=== PATIENT | female | born 1970 | race Caucasian/White ===

== ENCOUNTER 2018-04-12 13:27 | Outpatient (CLI) | payer OTHER ==
--- NOTE | 2018-04-14 09:00 | MMO ---
MAMMOGRAM FINDINGS: The breasts are heterogeneously dense, which could obscure a lesion on mammography. There is a round mass measuring 7 millimeters with circumscribed margins seen in the right breast at 12 o'clock. IMPRESSION: MASS IN THE RIGHT BREAST REQUIRES ADDITIONAL EVALUATION. AN ULTRASOUND SHOULD BE PERFORMED FOR FURTHER EVALUATION. ACR BI-RADS Category 0 - Incomplete: Need additional imaging evaluation. [facility] will notify the patient of the need for additional imaging services.
== END 2018-04-12 13:28 | disposition home or self-care (01) ==
LOC: BICMAMMO 13:27
PROVIDERS: ATTEND Family Medicine
DX: Z12.31 Encounter for screening mammogram for malignant neoplasm of breast (principal)
CPT/HCPCS: 77063; 77067

== ENCOUNTER 2018-05-02 14:14 | Outpatient (CLI) | payer OTHER ==
--- NOTE | 2018-05-02 15:30 | ULT ---
RIGHT BREAST ULTRASOUND: HISTORY: Well circumscribed mass seen at the 12 o'clock position of the right breast on screening mammography with tomosynthesis. COMPARISON: Mammogram from 04/12/2018. TECHNIQUE: Multiplanar dumas-scale and color Doppler images were obtained in a targeted ultrasound of the right b reast. FINDINGS: At the 12 o'clock position of the right breast, approximately 7 cm from the nipple, there is a well c ircumscribed, hypoechoic mass, which appears solid. This does not demonstrate shadowing. This may h ave a hyperechoic center and could represent an intramammary lymph node. No suspicious shadowing or mass is seen. IMPRESSION: BI-RADS category 3-Probably benign finding. A six-month follow-up right breast ultrasound is recomme nded to ensure stability. POS: ZEESHAN
== END 2018-05-02 14:15 | disposition home or self-care (01) ==
LOC: BICMAMMO 14:14
PROVIDERS: ATTEND Family Medicine
DX: N63.11 Unspecified lump in the right breast, upper outer quadrant (principal)

== ENCOUNTER 2018-11-02 13:11 | Outpatient (CLI) | payer OTHER ==
--- NOTE | 2018-11-02 13:36 | ULT ---
LIMITED RIGHT BREAST ULTRASOUND: Date: 11/02/18 PROVIDED CLINICAL HISTORY: Follow-up right breast mass. FINDINGS: Limited sonographic interrogation was performed of the right breast at the 12 o'clock position. There is a circumscribed hypoechoic mass with questionable fatty hilum again demonstrated at the 12 o'cloc k position of the right breast. This measures about 7 mm maximally. No acoustic shadowing is evident. IMPRESSION: BI-RADS Category 3 - Probably benign findings. Follow-up bilateral diagnostic mammogram in 6 months i s recommended. Ultrasound may be useful at that time. The facility will notify patient of need for additional imaging services. POS: OFF
== END 2018-11-02 13:12 | disposition home or self-care (01) ==
LOC: BICULT 13:11
PROVIDERS: ATTEND Family Medicine
DX: N63.10 Unspecified lump in the right breast, unspecified quadrant (principal)

== ENCOUNTER 2019-04-14 13:34 | Outpatient (CLI) | payer OTHER ==
--- NOTE | 2019-04-14 14:27 | MMO ---
Bilateral MAMMO Bilat Diag [facility]. CLINICAL HISTORY: Patient is 48 years old and is seen for diagnostic exam. The patient has no family history of breast cancer. The patient has no personal history of cancer. VIEWS: The views performed were: bilateral craniocaudal with tomosynthesis; bilateral mediolateral oblique with tomosynthesis; and bilateral mediolateral with tomosynthesis. FILMS COMPARED: The present examination has been compared to prior imaging studies performed at [facility] on 04/12/2018, 05/02/2018, 11/02/2018 and 04/14/2019. This study has been interpreted with the assistance of computer-aided detection. MAMMOGRAM FINDINGS: The breasts are heterogeneously dense, which could obscure a lesion on mammography. Finding 1: There are stable benign appearing calcifications seen in both breasts. Finding 2: There is a stable intramammary lymph node measuring 7 millimeters seen in the right breast at 12 o'clock. There are no suspicious masses, suspicious calcifications, or new areas of architectural distortion. IMPRESSION: THERE IS NO MAMMOGRAPHIC EVIDENCE OF MALIGNANCY. A ROUTINE FOLLOW-UP MAMMOGRAM IN 1 YEAR IS RECOMMENDED. THE RESULTS OF THIS EXAM WERE SENT TO THE PATIENT. ACR BI-RADS Category 2 - Benign finding MAMMOGRAPHY NOTE: 1. A negative mammogram report should not delay a biopsy if a dominant of clinically suspicious mass is present. 2. Approximately 10% to 15% of breast cancers are not detected by mammography. 3. Adenosis and dense breasts may obscure an underlying neoplasm. Reported by: DESHAUN ROBERTSON MD Electonically Signed: [id number]
--- NOTE | 2019-04-14 15:20 | ULT ---
RIGHT BREAST ULTRASOUND: HISTORY: A followup right breast ultrasound is performed with attention to the 12 o'clock position 7 cm from t he nipple. COMPARISON: 11/02/2018. FINDINGS: Again noted is a circumscribed 0.4 x 0.7 x 0.7 cm diameter solid mass slightly hyperechoic peripheral ly and centrally minimally hyperechoic, evidence for an intramammary lymph node. IMPRESSION: BIRADS category 2, benign findings. Stable intramammary lymph node at 12 o'clock 7 cm from the nippl e. A 10-year annual followup screening mammogram is recommended. POS: STEPHANIE
== END 2019-04-14 13:35 | disposition home or self-care (01) ==
LOC: BICMAMMO 13:34
PROVIDERS: ATTEND Family Medicine
DX: N63.10 Unspecified lump in the right breast, unspecified quadrant (principal); I88.9 Nonspecific lymphadenitis, unspecified
CPT/HCPCS: 77066; G0279